=== PATIENT | female | born 1945 | race Caucasian/White ===

== ENCOUNTER 2017-07-31 14:31 | Emergency (ER) | payer OTHER, BC ==
[2017-07-31 14:45] VITALS: BMI 29.9
--- NOTE | 2017-07-31 14:45 | PDOC ---
Rapid Medical Evaluation Time Seen by Provider: 07/31/17 14:40 Medical Evaluation: Allergies Allergy/AdvReac Type Severity Reaction Status Date / Time No Known Allergies Allergy Verified 07/31/17 14:41 07/31/17 14:41 I have performed a brief in-person evaluation of this patient. This patient presents with a chief complaint of: intermittent chest pain x 2 weeks pain worse last night in epigastric area also reports radiation to the upper left back Denies nausea, vomiting, shortness of breath or dizzines Pertinent physical exam findings: NAD lungs clear bilaterally heart s1s2 abdomen soft non tender, + bowel sounds, no pedal edema I have ordered the following: labs, elg The patient will proceed to the ED for further evaluation.
[2017-07-31] MEDS ORDERED: MAG HYDROX/AL HYDROX/SIMETH 30 ML UNIT-DOSE CUP PO ONE (15:14)
[2017-07-31] MEDS ORDERED: PANTOPRAZOLE SODIUM 40 MG in SODIUM CHLORIDE 100 ML IVPB ONE (15:14)
--- NOTE | 2017-07-31 15:15 | PDOC ---
History of Present Illness - General Chief Complaint: Chest Pain Stated Complaint: CHEST PAIN, LAB VARIANCE Time Seen by Provider: 07/31/17 14:40 - History of Present Illness Initial Comments: 07/31/17 15:09 72 F with h/o GERD presenting to ER with chest pain and epigastric pain. Pt reports intermittent discomfort x 2-3 weeks. However, in the past 24 hours, the pain has woken her from sleep, prompting her to come to ED. Pt states pain is worse at night, especially after meals, and the pain is also exacerbated by spicy foods. Pt denies SOB. Denies N/V. Denies dizziness/lightheadedness. Denies diarrhea/constipation. Past History - Past Medical History Allergies/Adverse Reactions: Allergies Allergy/AdvReac Type Severity Reaction Status Date / Time No Known Allergies Allergy Verified 07/31/17 14:41 Home Medications: Ambulatory Orders NK [No Known Home Medication] 07/31/17 Anemia: No Asthma: No Cancer: No Cardiac Disorders: No CVA: No COPD: No CHF: No Dementia: No Diabetes: No GI Disorders: No Disorders: No HTN: No Hypercholesterolemia: No Liver Disease: No Seizures: No Thyroid Disease: No Other medical history: DENIES. - Surgical History Abdominal Surgery: No Appendectomy: No Cardiac Surgery: No Cholecystectomy: No Lung Surgery: No Neurologic Surgery: No Orthopedic Surgery: No - Suicide/Smoking/Psychosocial Hx Smoking History: Never smoked Have you smoked in the past 12 months: No Hx Alcohol Use: Yes Drug/Substance Use Hx: No Substance Use Type: Alcohol Hx Substance Use Treatment: No Cardiac Specific PMH - Complaint Specific PMHX Pacemaker: No *Physical Exam - Vital Signs Last Vital Signs Temp Pulse Resp BP Pulse Ox 97.4 F L 64 16 129/75 100 07/31/17 18:26 07/31/17 18:26 07/31/17 18:26 07/31/17 18:26 07/31/17 18:26 - Physical Exam Comments: 07/31/17 15:12 "GENERAL: Awake, alert, and fully oriented, in no acute distress HEAD: No signs of trauma EYES: PERRLA, EOMI, sclera anicteric, conjunctiva clear ENT: Auricles normal inspection, hearing grossly normal, nares patent, oropharynx clear without exudates. Moist mucosa NECK: Nontender, no stepoffs, Normal ROM, supple, no lymphadenopathy, JVD, or masses LUNGS: Breath sounds equal, clear to auscultation bilaterally. No wheezes, and no crackles HEART: Regular rate and rhythm, normal S1 and S2, no murmurs, rubs or gallops ABDOMEN: Soft, nontender, normoactive bowel sounds. No guarding, no rebound. No masses EXTREMITIES: Normal range of motion, no edema. No clubbing or cyanosis. No cords, erythema, or tenderness NEUROLOGICAL: Cranial nerves II through XII intact. 5/5 strength and sensation in all extremities, Normal speech, normal gait, normal cerebellar function SKIN: Warm, Dry, normal turgor, no rashes or lesions noted. " Heart Score/ECG Review - History History: Slightly suspicious - Electrocardiogram EKG: Normal - Age Age: >/= 65 - Risk Factors Based on the list above the patient has:: No risk factors known - Troponin Troponin: </= normal limit - Score Heart Score - Total: 2 - ECG Impressions Comment:: 07/31/17 15:13 NSR, no RUBEN/STDs, no TWIs, axis wnl, intervals wnl, rate 62 ED Treatment Course - LABORATORY CBC & Chemistry Diagram: 07/31/17 15:14 07/31/17 15:14 - ADDITIONAL ORDERS Additional order review: 07/31/17 15:14 RBC 4.79 MCV 87.4 MCHC 34.2 RDW 13.4 MPV 8.8 Neutrophils % 62.9 Lymphocytes % 28.2 Monocytes % 7.5 Eosinophils % 0.6 Basophils % 0.8 - RADIOLOGY Radiology Studies Ordered: Category Date Time Status CHEST PA & LAT [RAD] Stat Radiology 07/31/17 15:14 Completed - Medications Given in the ED: ED Medications Discontinued Medications Generic Name Dose Route Start Last Admin Trade Name Freq PRN Reason Stop Dose Admin Al Hydroxide/Mg Hydroxide 30 ml 07/31/17 15:14 07/31/17 15:35 Mylanta Oral Suspension - PO 07/31/17 15:15 30 ml ONCE ONE Administration Pantoprazole Sodium 40 mg/ 100 mls @ 200 mls/hr 07/31/17 15:14 07/31/17 15:35 Sodium Chloride IVPB 07/31/17 15:43 200 mls/hr ONCE ONE Administration Medical Decision Making - Medical Decision Making 07/31/17 15:13 72 F with intermittent chest and epigastric pain. Likely related to pt's GERD. However, given pt's age, will r/o ACS with serial trops. Pt with benign abdomen on exam, making acute abdominal pathology unlikely. - Labs, lipase, trop - CXR - GI cocktail 07/31/17 18:31 Labs wnl, trop negative. CXR clear. Pt with HEART score 2. Pending 2nd trop. 07/31/17 19:10 Trop 2 negative. Pt reassessed - reports complete resolution of symptoms with GI cocktail. Pt is well appearing, with normal vitals. Clinically stable for DC at this time. I discussed the physical exam findings, ancillary test results and final diagnoses with the patient. I answered all of the patient's questions. The patient was satisfied with the care received and felt comfortable with the discharge plan and treatment plan. The patient agrees to follow up with the primary care physician within 24-72 hours. *DC/Admit/Observation/Transfer Diagnosis at time of Disposition: Chest pain - Referrals Referrals: Jenna Villagomez [Primary Care Provider] - Ivone Osorio MD [Staff Physician] - Leonid Herrera MD [Staff Physician] - - Patient Instructions Printed Discharge Instructions: DI for Gastritis, DI for Atypical Chest Pain Additional Instructions: Please follow up with your primary doctor within 1 week for further evaluation of your chest pain. You will need a cardiology referral for complete work up of your chest pain. You will also need a repacker for management of your acid reflux. Call the numbers provided to make appointments with our underwater welder and repacker. If you experience worsening chest pain, shortness of breath, or any other concerning symptoms, return to the ER immediately. - Post Discharge Activity - Attestations Physician Attestion: 07/31/17 18:33 I, Dr. Alden Cervantes MD, attest that this document has been prepared under my direction and personally reviewed by me in its entirety. I further attest, that it accurately reflects all work, treatment, procedures and medical decision -making performed by me.
[2017-07-31 15:22] LABS: BASO % 0.8 % (0-2.0); EOS % 0.6 % (0-4.5); HEMATOCRIT 41.9 % (32.4-45.2); HEMOGLOBIN 14.3 GM/dL (10.7-15.3); LYMPH % 28.2 % (8-40); MCH 29.9 pg (25.7-33.7); MCHC 34.2 g/dl (32.0-36.0); MEAN CELL VOLUME 87.4 fl (80-96); MEAN PLT VOLUME 8.8 fl (7.5-11.1); MONO % 7.5 % (3.8-10.2); NEUT % 62.9 % (42.8-82.8); PLATELET COUNT 264 K/MM3 (134-434); RBC 4.79 M/mm3 (3.60-5.2); RDW 13.4 % (11.6-15.6); WHITE BLOOD COUNT 7.3 K/mm3 (4.0-10.0)
[2017-07-31] MEDS ORDERED: MAG HYDROX/AL HYDROX/SIMETH 30 ML UNIT-DOSE CUP ONE (15:30)
[2017-07-31] MEDS ORDERED: PANTOPRAZOLE SODIUM 40 MG VIAL ONE (15:30)
[2017-07-31 15:35] LABS: INR 1.04 (0.82-1.09); PROTHROMBIN TIME (PATIENT) 11.8 SEC (9.98-11.88)
[2017-07-31 15:38] LABS: ACTIVATED PTT 35.5 SECONDS (26.9-34.4)
--- NOTE | 2017-07-31 15:44 | EKG ---
Test Reason : Blood Pressure : / mmHG Vent. Rate : 062 BPM Atrial Rate : 062 BPM P-R Int : 146 ms QRS Dur : 092 ms QT Int : 384 ms P-R-T Axes : 041 031 001 degrees QTc Int : 389 ms NORMAL SINUS RHYTHM NONSPECIFIC ST ABNORMALITY ABNORMAL ECG NO PREVIOUS ECGS AVAILABLE Confirmed by SHERIE SIMS MD ([id number]) on 07/31/2017 3:44:00 PM Referred By: Confirmed By:SHERIE SIMS MD
[2017-07-31 15:49] LABS: ALBUMIN 3.6 g/dl (3.4-5.0); ANION GAP 10 (8-16); BILIRUBIN,TOTAL 0.2 mg/dL (0.2-1.0); BLOOD UREA NITROGEN 18 mg/dL (7-18); CALCIUM 9.1 mg/dL (8.5-10.1); CHLORIDE 106 mmol/L (98-107); CO2 24 mmol/L (21-32); CREATININE 0.8 mg/dL (0.55-1.02); GLUCOSE,RANDOM 108 mg/dL (74-106); LIPASE 99 U/L (73-393); POTASSIUM 4.3 mmol/L (3.5-5.1); SGOT/AST 23 U/L (15-37); SGPT/ALT 32 U/L (12-78); SODIUM 140 mmol/L (136-145); TOT PROT 7.1 g/dl (6.4-8.2)
[2017-07-31 15:52] LABS: ALK PHOS 122 U/L (45-117)
[2017-07-31 18:27] VITALS: BP 129/75; PULSE 64; TEMP 97.4
== END 2017-07-31 19:28 | disposition home or self-care (01) ==
LOC: JER 14:31
PROC: 3E033GC Introduction of Other Therapeutic Substance into Peripheral Vein, Percutaneous Approach (ICD-10-PCS; principal; 2017-07-31)
DX: R07.89 Other chest pain (principal); K21.9 Gastro-esophageal reflux disease without esophagitis
CPT/HCPCS: 36415; 71046-TC-FY; 80053; 82550; 83690; 84484; 85025; 85610; 85730; 93005; 93010; 96365; 99283-25

== ENCOUNTER 2019-05-06 10:20 | Day surgery (SDC) | payer OTHER, BC ==
[2019-05-02 11:35] VITALS: BMI 29.2
[2019-05-06] MEDS ORDERED: LIDOCAINE HCL/PF 2% SDV 5ML VIAL ONE (12:38)
[2019-05-06] MEDS ORDERED: PROPOFOL 20 ML ONE ×2 (12:38)
[2019-05-06 14:14] VITALS: TEMP 97.4
[2019-05-06 14:26] VITALS: BP 98/45; PULSE 59
== END 2019-05-06 13:30 | disposition home or self-care (01) ==
LOC: FASU-ENDO 10:20
PROVIDERS: ATTEND Internal Medicine Gastroenterology
PROC: 0DJD8ZZ Inspection of Lower Intestinal Tract, Via Natural or Artificial Opening Endoscopic (ICD-10-PCS; principal; 2019-05-06 12:41)
DX: Z12.11 Encounter for screening for malignant neoplasm of colon (principal); Z80.0 Family history of malignant neoplasm of digestive organs; K57.30 Diverticulosis of large intestine without perforation or abscess without bleeding